=== PATIENT | male | born 1985 | race Caucasian/White ===

== ENCOUNTER 2020-01-18 13:08 | Emergency (ER) | payer OTHER ==
[2020-01-18 13:15] VITALS: BP 120/72; PULSE 58; TEMP 97; BMI 27.3
[2020-01-18] MEDS ORDERED: IBUPROFEN 400 MG TABLET (FP) PO ONE (13:31)
--- NOTE | 2020-01-18 13:37 | PDOC ---
History of Present Illness - General Chief Complaint: Back Pain Stated Complaint: BACK PAIN Time Seen by Provider: 01/18/20 13:18 History Source: Patient - History of Present Illness Occurred: reports: yesterday Severity: reports: mild Pain Location: reports: back Past History - Medical History Allergies/Adverse Reactions: Allergies Allergy/AdvReac Type Severity Reaction Status Date / Time No Known Allergies Allergy Verified 01/18/20 13:14 Home Medications: Ambulatory Orders Ibuprofen [Motrin -] 600 mg PO QID #28 tablet 01/18/20 COPD: No - Psycho-Social/Smoking History Smoking History: Never smoked - Substance Abuse Hx (Audit-C & DAST Scrn) How often the patient has a drink containing alcohol: 2-4 times / month Score: In Men: 4 or > Positive; In Women: 3 or > Positive: 2 Screen Result (Pos requires Nsg. Audit-10AR): Negative Review of Systems - Review of Systems Constitutional: No: Chills, Fever Musculoskeletal: Yes: Back Pain Neurological: No: Headache, Numbness, Tingling, Weakness *Physical Exam - Vital Signs Last Vital Signs Temp Pulse Resp BP Pulse Ox 97 F L 58 L 18 120/72 99 01/18/20 13:12 01/18/20 13:12 01/18/20 13:12 01/18/20 13:12 01/18/20 13:12 - Physical Exam General Appearance: Yes: Appropriately Dressed. No: Apparent Distress HEENT: positive: Normal Voice Neck: positive: Supple Respiratory/Chest: negative: Respiratory Distress Gastrointestinal/Abdominal: positive: Soft. negative: Tender Musculoskeletal: positive: Normal Inspection, Vertebral Tenderness (to mid T spine, no step offs). negative: CVA Tenderness Integumentary: positive: Dry, Warm Neurologic: positive: Fully Oriented, Alert, Normal Mood/Affect Medical Decision Making - Medical Decision Making 01/18/20 13:34 34-year-old male, no significant history, here with mid back pain after empty cart fell onto patient at work yesterday. Not currently taking anything for pain. Able to ambulate with no difficulty. Patient well-appearing and stable with minimal tenderness to mid thoracic spine. Most likely contusion. Dc with pain control as needed Discharge - Discharge Information Problems reviewed: Yes Clinical Impression/Diagnosis: Back contusion Qualifiers: Encounter type: initial encounter Laterality: unspecified laterality Qualified Code(s): S20.229A - Contusion of unspecified back wall of thorax, initial encounter Condition: Good Disposition: HOME - Additional Discharge Information Prescriptions: Ibuprofen [Motrin -] 600 mg PO QID #28 tablet - Follow up/Referral - Patient Discharge Instructions Patient Printed Discharge Instructions: Contusion Additional Instructions: You most likely have a back contusion from your injury Tale medication as directed until pain improves Print Language: PUERTO RICAN - Post Discharge Activity Work/Back to School Note: Back to Work
== END 2020-01-18 13:37 | disposition home or self-care (01) ==
LOC: JERFT 13:08
DX: S20.229A Contusion of unspecified back wall of thorax, initial encounter (principal)
CPT/HCPCS: 99283-25

== ENCOUNTER 2021-04-14 18:52 | Emergency (ER) | payer OTHER ==
[2021-04-14 19:41] VITALS: BP 103/67; PULSE 85; TEMP 99.9
[2021-04-14] MEDS ORDERED: ACETAMINOPHEN 650 MG/20.3 ML ORAL SOLUTION (CUPS) PO ONE (21:04)
[2021-04-14] MEDS ORDERED: IBUPROFEN 600 MG TABLET (FP) PO ONE (21:47)
[2021-04-14 22:31] LABS: EPI CELLS 11 /uL (0-25.1); HYALINE CASTS 4 /uL (0-3.1); PH,URINE 5.5 (5.0-8.0); URINE APPEARANCE CLEAR; URINE BACTERIA 2 /uL (0-1359); URINE BILIRUBIN NEGATIVE (NEGATIVE); URINE COLOR YELLOW; URINE GLUCOSE (UA) NEGATIVE (NEGATIVE); URINE KETONE 2+ (NEGATIVE); URINE LEUK ESTERASE NEGATIVE (NEGATIVE); URINE NITRITE NEGATIVE (NEGATIVE); URINE PROTEIN 1+ (NEGATIVE); URINE RBC 5 /uL (0-23.9); URINE WBC 15 /uL (0-25.8)
== END 2021-04-15 00:19 | disposition home or self-care (01) ==
LOC: JER 18:52
DX: J06.9 Acute upper respiratory infection, unspecified (principal); M54.9 Dorsalgia, unspecified
CPT/HCPCS: 72100-TC-FY; 81003; 87086; 87804; 99283-25; C9803; U0003; U0005